=== PATIENT | female | born 1960 | race Caucasian/White ===

== ENCOUNTER 2016-05-17 22:49 | Emergency (ER) | payer MEDICAID ==
--- NOTE | 2016-05-17 22:54 | ED Physician Documentation ---
PD HPI CHEST PAIN - Stated complaint Stated Complaint: CP - History obtained from History obtained from: Patient - History of Present Illness Timing - onset: How many days ago (2 days ago, then resolved until 4 PM this afternoon and became worse and pleuritic at 8PM; significant spontaneous improvement en route to ED) Timing - details: Gradual onset, Intermittant, Waxing and waning Pain level now: 5 Quality: Pain Location: Left chest Radiation: Other (does not radiate) Improved by: Nothing Worsened by: Inspiration Associated symptoms: No: Shortness of air, Diaphoresis, Nausea, Vomiting Similar symptoms before: Has not had sx before Recently seen: Not recently seen Review of Systems Constitutional: denies: Fever Cardiac: reports: Chest pain / pressure. 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 - Present Medications Home Medications: Ambulatory Orders Medication Instructions Recorded Confirmed traZODone [Desyrel] 50 mg ORAL QPM 08/25/13 08/25/13 - Allergies Allergies/Adverse Reactions: Allergies Allergy/AdvReac Type Severity Reaction Status Date / Time No Known Drug Allergies Allergy Verified 08/24/13 14:40 PD ED PE NORMAL - Vitals Vital signs reviewed: Yes - General General: Alert and oriented X 3, No acute distress, Well developed/nourished - HEENT HEENT: Moist mucous membranes - Neck Neck: Supple, no meningeal sign - Cardiac Cardiac: RRR, No murmur, No gallop, No rub - Respiratory Respiratory: No respiratory distress, Clear bilaterally - Abdomen Abdomen: Soft, Non tender - Back Back: No CVA TTP - Derm Derm: Normal color, Warm and dry - Extremities Extremities: No edema Results - Vitals Vitals: Vital Signs - 24 hr 05/17/16 05/17/16 05/17/16 22:54 23:17 23:25 Temperature 36.7 C Heart Rate 78 70 Respiratory 20 18 Rate Blood Pressure 141/92 H 132/80 H O2 Saturation 98 98 05/17/16 05/18/16 05/18/16 23:37 01:00 01:58 Temperature 36.6 C Heart Rate 66 65 62 Respiratory 16 14 22 Rate Blood Pressure 128/61 126/81 H 97/42 L O2 Saturation 98 97 97 Oxygen O2 Source Room air - EKG (time done) No standard instances Rate: Rate (enter#) (69) Rhythm: NSR [place]: Normal Intervals: Normal MI QRS: Normal Ischemia: Normal ST segments - Labs Labs: Laboratory Tests 05/17/16 05/17/16 05/17/16 23:07 23:07 23:07 WBC 13.1 H RBC 4.27 Hgb 14.0 Hct 42.4 MCV 99.3 H MCH 32.7 H MCHC 32.9 RDW 12.7 Plt Count 362 MPV 7.9 Neut # 7.6 H Lymph # 4.0 H Hawkins # 1.2 H Eos # 0.2 Baso # 0.1 Absolute Nucleated RBC 0.00 Nucleated RBCs 0.0 D-Dimer Sodium 137 Potassium 3.5 Chloride 104 Carbon Dioxide 25 Anion Gap 8.0 BUN 13 Creatinine 0.7 Estimated GFR (MDRD) 87 L Glucose 95 Calcium 9.3 Total Bilirubin 0.5 AST 27 ALT 12 Alkaline Phosphatase 42 Troponin I < 0.04 Total Protein 7.0 Albumin 4.4 Globulin 2.6 Albumin/Globulin Ratio 1.7 Lipase 38 Urine Color Urine Clarity Urine pH Ur Specific [place] Urine Protein Urine Glucose (UA) Urine Ketones Urine Occult Blood Urine Nitrite Urine Bilirubin Urine Urobilinogen Ur Leukocyte Esterase Urine RBC Urine WBC Ur Squamous Epith Cells Urine Bacteria Ur Microscopic Review Urine Culture Comments 05/17/16 05/17/16 23:07 23:10 WBC RBC Hgb Hct MCV MCH MCHC RDW Plt Count MPV Neut # Lymph # Hawkins # Eos # Baso # Absolute Nucleated RBC Nucleated RBCs D-Dimer 180.5 L Sodium Potassium Chloride Carbon Dioxide Anion Gap BUN Creatinine Estimated GFR (MDRD) Glucose Calcium Total Bilirubin AST ALT Alkaline Phosphatase Troponin I Total Protein Albumin Globulin Albumin/Globulin Ratio Lipase Urine Color YELLOW Urine Clarity CLEAR Urine pH 6.0 Ur Specific [place] <=1.005 Urine Protein NEGATIVE Urine Glucose (UA) NEGATIVE Urine Ketones NEGATIVE Urine Occult Blood TRACE-LYSE Urine Nitrite POSITIVE H Urine Bilirubin NEGATIVE Urine Urobilinogen 0.2 (NORMAL) Ur Leukocyte Esterase NEGATIVE Urine RBC 0-5 Urine WBC 0-3 Ur Squamous Epith Cells RARE Squamous Urine Bacteria Many H Ur Microscopic Review INDICATED Urine Culture Comments INDICATED - Rads (name of study) chest xray Radiology: Prelim report reviewed, See rad report PD MEDICAL DECISION MAKING - ED course Complexity details: reviewed results, re-evaluated patient, considered differential, d/w patient Departure - Departure Disposition: 01 Home, Self Care Clinical Impression: Chest pain Qualifiers: Chest pain type: unspecified Qualified Code(s): R07.9 - Chest pain, unspecified Condition: Good Instructions: ED Chest Pain Atypical Unkn Cause Comments: Contact your primary care provider's office Thursday to arrange for next available appointment Discharge Date/Time: 05/18/16 03:04
[2016-05-17 23:16] LABS: BASOPHILS # (AUTO) 0.1 10^3/uL (0.0-0.1); BASOPHILS % (AUTO) 0.7 %; EOSINOPHILS # (AUTO) 0.2 10^3/uL (0.0-0.7); EOSINOPHILS % (AUTO) 1.7 %; HCT - HEMATOCRIT 42.4 % (37.0-47.0); LYMPHOCYTES % (AUTO) 30.4 %; MEAN CORPUSCULAR HEMOGLOBIN 32.7 pg (27.0-31.0); MEAN CORPUSCULAR HGB CONC 32.9 g/dL (32.0-36.0); MEAN CORPUSCULAR VOLUME 99.3 fL (81.0-99.0); MEAN PLATELET VOLUME 7.9 fL (7.9-10.8); MONOCYTES # (AUTO) 1.2 10^3/uL (0.0-1.0); NEUTROPHILS # (AUTO) 7.6 10^3/uL (1.5-6.6); NEUTROPHILS % (AUTO) 58.2 %; RED BLOOD COUNT 4.27 10^6/uL (4.20-5.40); RED CELL DISTRIBUTION WIDTH 12.7 % (12.0-15.0); UNCORRECTED WHITE BLOOD COUNT 13.1 x10^3/uL; WHITE BLOOD COUNT 13.1 x10^3/uL (4.8-10.8)
[2016-05-17 23:29] LABS: ALBUMIN/GLOBULIN RATIO 1.7 (1.0-2.2); BILIRUBIN,TOTAL 0.5 mg/dL (0.2-1.0); CALCIUM 9.3 mg/dL (8.5-10.3); CREATININE 0.7 mg/dL (0.4-1.0); POTASSIUM 3.5 mmol/L (3.5-5.0)
[2016-05-17 23:32] LABS: BILIRUBIN,URINE NEGATIVE (NEGATIVE)
[2016-05-17 23:34] LABS: UA w/ MICROSCOPIC CHARGE YES
[2016-05-17 23:41] LABS: UR CULTURE IF IND INDICATED; WBC,URINE 0-3 /HPF (0-5)
--- NOTE | 2016-05-17 23:57 | XRAY Preliminary Report ---
Exam: XR Chest 2 View PA/LAT IMPRESSION: Small streaky bibasilar opacities, left greater than right. These may be due to atelectas is, aspiration, and/or pneumonia. [facility] SITE ID: [id number]
--- NOTE | 2016-05-18 | XRAY Report ---
EXAM: CHEST RADIOGRAPHY EXAM DATE: 05/17/2016 11:36 PM. CLINICAL HISTORY: Sharp chest pain, shortness of breath since 4 PM. COMPARISON: None. TECHNIQUE: 2 views. FINDINGS: Lungs/Pleura: There are small streaky bibasilar opacities, left greater than right. No effusion or de finite pneumothorax. Mediastinum: Normal heart size. Other: None. IMPRESSION: Small streaky bibasilar opacities, left greater than right. These may be due to atelectas is, aspiration, and/or pneumonia. [facility] Referring Provider Line: [phone] SITE ID: [id number]
[2016-05-18 03:00] VITALS: BP 97/42
== END 2016-05-18 03:04 | disposition home or self-care (01) ==
LOC: ED 22:49
DX: R07.9 Chest pain, unspecified (principal)
CPT/HCPCS: 36415; 71020; 80053; 81001; 81003; 83690; 84484; 85025; 85379; 87077; 87086; 93005; 93010; 99284

== ENCOUNTER 2016-12-24 15:27 | Outpatient (CLI) | payer OTHER ==
--- NOTE | 2016-12-25 15:17 | Mammography Report ---
DIGITAL SCREENING MAMMOGRAM: 12/24/2016 CLINICAL INDICATION: A 56-year-old with history of bilateral reduction for screening. COMPARISON: 08/2015, 07/2014, 05/2013, 04/2012, 01/2010 TECHNIQUE: Routine CC and MLO projections were obtained of the breasts as well as bilateral laterall y exaggerated craniocaudal views. FINDINGS: Scattered fibroglandular tissue is present within the breasts. There are no dominant odin s, suspicious microcalcifications, or secondary signs of malignancy. In comparison to the previous st udies, there are no significant changes. ASSESSMENT: NO MAMMOGRAPHIC EVIDENCE OF MALIGNANCY. NO SIGNIFICANT INTERVAL CHANGES. RECOMMENDATION: Screening mammography is recommended annually. BIRADS category 1 - negative. STANDARD QUALIFYING STATEMENTS 1. This examination was reviewed with the aid of Computed-Aided Detection (CAD). 2. A negative or benign imaging report should not delay biopsy if clinically suspicious findings are present. Consider surgical consultation if warranted. More than 5% of cancers are not identified by i maging. 3. Dense breasts may obscure an underlying neoplasm. JOB #: [id number] EXT JOB #:[id number]
== END 2016-12-24 15:28 | disposition home or self-care (01) ==
LOC: DI.S 15:27
PROVIDERS: ATTEND Nurse Practitioner Family
DX: Z12.31 Encounter for screening mammogram for malignant neoplasm of breast (principal)
CPT/HCPCS: 77067

== ENCOUNTER 2018-03-05 14:20 | Outpatient (CLI) | payer OTHER ==
--- NOTE | 2018-03-08 08:32 | Mammography Report ---
Reason: SCREENING MAMMO Procedure Date: 03/05/2018 Accession Number: [id number] / [id number] Procedure: DOROTHY - Screening Mammo w/Jeet CPT Code: FULL RESULT: EXAM: Screening Mammo w/Jeet DATE: 03/05/2018 2:46 PM CLINICAL HISTORY: Screening encounter. No reported risk factors. History of breast reduction surgery in 2006. TECHNIQUE: Bilateral CC and MLO views were obtained. COMPARISON: 12/24/2016 through 05/30/2013. FINDINGS: The breasts demonstrate scattered fibroglandular densities bilaterally. Postsurgical changes are stable, typically benign. No suspicious masses, clustered microcalcifications, or regions of architectural distortion are identified. IMPRESSION: Benign findings RECOMMENDATION: Routine annual screening unless otherwise clinically indicated. BIRADS CATEGORY 2: Benign findings STANDARD QUALIFYING STATEMENTS: 1. This examination was not reviewed with the aid of Computer-Aided Detection (CAD). 2. A negative or benign imaging report should not preclude biopsy if clinically suspicious findings are present. 3. Dense breasts may obscure an underlying neoplasm. 4. This examination was reviewed with the aid of 3D breast imaging (tomosynthesis).
== END 2018-03-05 14:21 | disposition home or self-care (01) ==
LOC: DI 14:20
PROVIDERS: ATTEND Nurse Practitioner Family
DX: Z12.31 Encounter for screening mammogram for malignant neoplasm of breast (principal)
CPT/HCPCS: 77063; 77067

== ENCOUNTER 2018-03-16 09:24 | Outpatient (CLI) | payer OTHER ==
[2018-03-16 17:56] LABS: BASOPHILS % (AUTO) 0.5 %; EOSINOPHILS # (AUTO) 0.1 10^3/uL (0.0-0.7); EOSINOPHILS % (AUTO) 1.7 %; HGB - HEMOGLOBIN 14.4 g/dL (12.0-16.0); LYMPHOCYTES # (AUTO) 1.9 10^3/uL (1.5-3.5); LYMPHOCYTES % (AUTO) 28.3 %; MEAN CORPUSCULAR HEMOGLOBIN 32.7 pg (27.0-31.0); MEAN CORPUSCULAR VOLUME 99.1 fL (81.0-99.0); MEAN PLATELET VOLUME 8.2 fL (7.9-10.8); MONOCYTES # (AUTO) 0.6 10^3/uL (0.0-1.0); MONOCYTES % (AUTO) 8.3 %; NEUTROPHILS # (AUTO) 4.1 10^3/uL (1.5-6.6); NEUTROPHILS % (AUTO) 61.2 %; PLT - PLATELET COUNT 351 10^3/uL (130-450); RED BLOOD COUNT 4.42 10^6/uL (4.20-5.40); RED CELL DISTRIBUTION WIDTH 13.1 % (12.0-15.0); WHITE BLOOD COUNT 6.7 x10^3/uL (4.8-10.8)
[2018-03-16 18:15] LABS: ALBUMIN 4.3 g/dL (3.2-5.5); ALBUMIN/GLOBULIN RATIO 1.7 (1.0-2.2); ALKALINE PHOSPHATASE 40 IU/L (42-121); ALT ALANINE AMINOTRANSFERASE 14 IU/L (10-60); AST ASPARTATE AMINOTRANSFERASE 18 IU/L (10-42); BILIRUBIN,TOTAL 0.9 mg/dL (0.2-1.0); BUN - BLOOD UREA NITROGEN 11 mg/dL (6-20); CALCIUM 9.1 mg/dL (8.5-10.3); CARBON DIOXIDE - CO2 23 mmol/L (21-32); CHLORIDE 105 mmol/L (101-111); CHOL/HDL RATIO 3.6 (<4.4); CHOLESTEROL 217 mg/dL; CREATININE 0.6 mg/dL (0.4-1.0); GFR - MDRD 103 (>89); GLUCOSE 76 mg/dL (70-100); HDL CHOLESTEROL 61 mg/dL; LDL CHOLESTEROL,CALCULATED 147 mg/dL; LDL/HDL RATIO 2.4 (<4.4); SODIUM 137 mmol/L (135-145); TOTAL PROTEIN 6.9 g/dL (6.7-8.2); VLDL CHOLESTEROL 9 mg/dL
== END 2018-03-16 09:25 | disposition home or self-care (01) ==
LOC: LAB.F 09:24
PROVIDERS: ATTEND Nurse Practitioner Family
DX: Z13.228 Encounter for screening for other metabolic disorders (principal); Z13.220 Encounter for screening for lipoid disorders; Z13.0 Encounter for screening for diseases of the blood and blood-forming organs and certain disorders involving the immune mechanism
CPT/HCPCS: 36415; 80053; 80061; 83721; 84443; 85025

== ENCOUNTER 2018-09-15 08:10 | Outpatient (CLI) | payer OTHER ==
--- NOTE | 2018-09-15 11:10 | Ultrasound Report ---
Reason: POST MENOPAUSAL BLEEDING AFTER THREE MONTHS ON HOR Procedure Date: 09/15/2018 Accession Number: [id number] / [id number] Procedure: US - Pelvic w/Transvaginal CPT Code: FULL RESULT: EXAM: PELVIC ULTRASOUND EXAM DATE: 09/15/2018 09:03 AM. CLINICAL HISTORY: Postmenopausal bleeding after three months on hormone therapy. COMPARISON: None. TECHNIQUE: Realtime transabdominal pelvic scan performed to identify the uterus and adnexa and as an overview of other pelvic structures, followed by transvaginal scan to provide greater detail of the uterus and adnexa, with static image documentation. FINDINGS: Uterus: 8.6 x 4.6 x 5.2 cm, volume 108 cc. Anteverted position. Normal overall size and echotexture. Masses: Within the posterior uterine body is a 2.1 x 1.8 x 1.8 cm intramural presumed fibroid. Endometrium: 8 mm. Normal. Cervix: Nabothian cysts are noted. Right Ovary: 1.8 x 0.9 x 0.9 cm, volume 0.8 cc. Normal echotexture and blood flow. Left Ovary: 1.0 x 0.7 x 1.5 cm, volume 5 cc. Normal echotexture and blood flow. Free Fluid: None. Other: None. IMPRESSION: Endometrial thickness is greater than expected for the postmenopausal state. Intramural fibroid. [facility]
== END 2018-09-15 08:11 | disposition home or self-care (01) ==
LOC: DI 08:10
PROVIDERS: ATTEND Nurse Practitioner Family
DX: N95.0 Postmenopausal bleeding (principal); D25.1 Intramural leiomyoma of uterus; R93.89 Abnormal findings on diagnostic imaging of other specified body structures
CPT/HCPCS: 76830; 76856

== ENCOUNTER 2020-04-03 14:59 | Outpatient (CLI) | payer OTHER ==
--- NOTE | 2020-04-04 16:47 | Ultrasound Report ---
PROCEDURE: Pelvic w/Transvaginal INDICATIONS: HX OF POSTMENOPAUSAL BLEEDING, FIBROID TECHNIQUE: Real-time scanning was performed of the pelvic organs, with image documentation. Additional endovagi nal scanning was necessary due to incomplete visualization of the adnexal and endometrial structures by transabdominal scanning. COMPARISON: Pelvic ultrasound 09/15/2018 FINDINGS: No pathologic free abdominal or pelvic fluid. Uterus: Uterus is normal in size at 8.6 x 4.5 x 4.7 cm. The endometrium measures 7.1 mm in combined thickness. Mild increased vascularity is noted within the endometrium. There is a left posterior int ramural/submucosal focus of heterogeneous echogenicity measuring 14 x 12 x 17 mm compared to 21 x 18 x 18 mm. Ovaries: Right ovary measures 1.4 x 0.4 cm. Left ovary is not visualized. IMPRESSION: 1. Mildly prominent and increased vascularity endometrium for postmenopausal patient with bleeding. 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 2. Mildly decreased size of previously identified uterine fibroid. Reviewed by: Jinny Parks MD on 04/04/2020 4:46 PM PST Approved by: Jinny Parks MD on 04/04/2020 4:46 PM PST Station ID: [id number]
== END 2020-04-03 15:00 | disposition home or self-care (01) ==
LOC: DI 14:59
PROVIDERS: ATTEND Nurse Practitioner Family
DX: N95.0 Postmenopausal bleeding (principal); D25.9 Leiomyoma of uterus, unspecified; Z79.890 Hormone replacement therapy; Z84.89 Family history of other specified conditions

== ENCOUNTER 2020-10-12 09:22 | Outpatient (CLI) | payer OTHER ==
--- NOTE | 2020-10-12 10:06 | XRAY Report ---
PROCEDURE: Knee 3 View RT INDICATIONS: RIGHT KNEE TECHNIQUE: 3 views of the right knee(s) were acquired. COMPARISON: None. FINDINGS: Bones: No fractures or dislocations. No suspicious bony lesions. Minimal medial joint space narrowi ng. Soft tissues: No joint effusion. No suspicious soft tissue calcifications. IMPRESSION: Minimal degenerative changes. If the patient's pain or other symptoms persist, consider further evaluation with MRI. Reviewed by: Robbin Espinoza MD on 10/12/2020 10:05 AM PDT Approved by: Robbin Espinoza MD on 10/12/2020 10:05 AM PDT Station ID: [id number]
== END 2020-10-12 09:23 | disposition home or self-care (01) ==
LOC: DI.S 09:22
PROVIDERS: ATTEND Nurse Practitioner Family
DX: M17.11 Unilateral primary osteoarthritis, right knee (principal)

== ENCOUNTER 2020-11-29 12:43 | Outpatient (CLI) | payer OTHER ==
--- NOTE | 2020-11-30 08:42 | Mammography Report ---
BILATERAL DIGITAL SCREENING MAMMOGRAM 3D/2D: 11/29/2020 CLINICAL: Routine screening. Comparison is made to exams dated: 03/05/2018 mammogram, 12/24/2016 mammogram, 08/08/2015 mammogram, a nd 07/26/2014 mammogram - [facility]. There are scattered fibroglandular elements i n both breasts. No significant masses, calcifications, or other findings are seen in either breast. There has been no significant interval change. IMPRESSION: NEGATIVE There is no mammographic evidence of malignancy. A 1 year screening mammogram is recommended. This exam was interpreted at Station ID: [id number]. NOTE: For mammograms, a report in lay terms will be sent to the patient. Approximately 15% of breast malignancies will not be visualized mammographically. In the management of a palpable breast mass, a negative mammogram must not discourage biopsy of a clinically suspicious lesion. Electronically Signed By: Teddy Menjivar M.D. slc/penrad:11/29/2020 13:53:59 ACR BI-RADS Category 1: Negative 3341F PARENCHYMAL PATTERN: (A) - The breast(s) demonstrate(s) scattered fibroglandular densities. BI-RADS CATEGORY: (1) - 1 RECOMMENDATION: (ANNUAL) - Recommend routine annual screening mammography. [id number] 1 year screening LATERALITY: (B)
== END 2020-11-29 12:44 | disposition home or self-care (01) ==
LOC: DI 12:43
DX: Z12.31 Encounter for screening mammogram for malignant neoplasm of breast (principal)

== ENCOUNTER 2020-11-29 12:44 | Outpatient (CLI) | payer OTHER ==
--- NOTE | 2020-11-29 15:11 | Ultrasound Report ---
PROCEDURE: Pelvic w/Transvaginal INDICATIONS: POSTMENOPAUSAL BLEEDING TECHNIQUE: Real-time scanning was performed of the pelvic organs, with image documentation. Additional endovagi nal scanning was necessary due to incomplete visualization of the adnexal and endometrial structures by transabdominal scanning. COMPARISON: Pelvic ultrasound 04/03/2020. FINDINGS: No pathologic free abdominal or pelvic fluid. Uterus: Uterus is normal in size at 8.0 x 4.1 x 4.5 cm. The endometrium measures 4 mm in combined t hickness. A mildly hyperechoic posterior intramural fibroid is seen measuring 1.7 x 1.6 x 1.5 cm. Ovaries: The ovaries are not visualized. No suspicious adnexal mass is seen. IMPRESSION: 1. Endometrial thickness is within normal limits, decreased in thickness when compared to the prior ultrasound from 04/03/2020. 2. Stable small uterine fibroid. Reviewed by: Preet Ornelas MD on 11/29/2020 3:10 PM PDT Approved by: Preet Ornleas MD on 11/29/2020 3:10 PM PDT Station ID: [id number]
== END 2020-11-29 12:45 | disposition home or self-care (01) ==
LOC: DI 12:44
PROVIDERS: ATTEND Obstetrics & Gynecology
DX: D25.1 Intramural leiomyoma of uterus (principal); N95.0 Postmenopausal bleeding

== ENCOUNTER 2021-01-16 13:31 | Outpatient (CLI) | payer OTHER ==
[2021-01-18 09:22] LABS: ESTRADIOL <15 pg/mL; PROGESTERONE <0.5 ng/mL
== END 2021-01-16 13:32 | disposition home or self-care (01) ==
LOC: LAB.S 13:31
PROVIDERS: ATTEND Obstetrics & Gynecology
DX: Z78.0 Asymptomatic menopausal state (principal)
CPT/HCPCS: 36415; 81599; 82670; 82671; 82672; 84144

== ENCOUNTER 2021-04-10 10:43 | Outpatient (CLI) | payer OTHER ==
--- NOTE | 2021-04-10 16:34 | DEXA Report ---
PROCEDURE: Dexa Spine and/or Hip INDICATIONS: MENOPAUSE, OSTEOPENIA TECHNIQUE: Dual energy x-ray absorptiometry (DXA) was performed on a [employer] System. Regions measur ed are the AP Spine, femoral neck, and if needed forearm. COMPARISON: None. FINDINGS: Lumbar Spine: Bone Mineral Density 1.215 g/cm/cm,T score 0.3. Left Hip: Bone Mineral Density 1.103 g/cm/cm,T score 0.8. Left Femoral Neck: Bone Mineral Density 0.972 g/cm/cm, T score -0.5. (T score greater or equal to -1.0: NORMAL) (T score from -1.1 to -2.4: OSTEOPENIA) (T score less than or equal to -2.5 to: OSTEOPOROSIS) Impression: Normal bone mineral density. Patients with diagnosis of osteoporosis or osteopenia should have regular bone mineral density assess ment. For those eligible for Medicare, routine testing is allowed once every 2 years. Testing frequ ency can be increased for patients who have rapidly progressing disease or for those who are receivin g medical therapy to restore bone mass. Reviewed by: Ken Hull MD on 04/10/2021 4:33 PM PST Approved by: Ken Hull MD on 04/10/2021 4:33 PM PST Station ID: [id number]
== END 2021-04-10 10:44 | disposition home or self-care (01) ==
LOC: DI 10:43
PROVIDERS: ATTEND Obstetrics & Gynecology
DX: Z78.0 Asymptomatic menopausal state (principal); M85.80 Other specified disorders of bone density and structure, unspecified site

== ENCOUNTER 2022-10-03 08:44 | Day surgery (SDC) | payer OTHER ==
[2022-10-03] MEDS ORDERED: LACTATED RINGERS 1,000 ML IV ONE ×2 (08:50→10:46)
--- NOTE | 2022-10-03 09:37 | ANESTHESIA ---
Pre-Anesthesia VS, & Labs - Diagnosis screening - Procedure colonoscopy Vital Signs: Temp Pulse Resp BP Pulse Ox O2 Flow Rate 36.3 C L 57 L 16 120/74 98 10/03/22 08:50 10/03/22 08:50 10/03/22 08:50 10/03/22 08:50 10/03/22 08:50 Height: 4 ft 4 in Weight (kg): 65.7 kg Body Mass Index: 37.6 BMI Classification: Obese - NPO >8 hours - Is Patient ?: No - Lab Results Lab results reviewed: Yes Home Medications and Allergies Allergies/Adverse Reactions: Allergies Allergy/AdvReac Type Severity Reaction Status Date / Time No Known Drug Allergies Allergy Verified 08/24/13 14:40 Anes History & Medical History - Anesthetic History Anesthesia Complications: reports: No previous complications Family history of Anesthesia Complications: Denies Family history of Malignant Hyperthermia: Denies - Medical History Cardiovascular: reports: None Pulmonary: reports: None Gastrointestinal: reports: None Urinary: reports: None Neuro: reports: None Musculoskeletal: reports: None Endocrine/Autoimmune: reports: None Blood Disorders: reports: None Skin: reports: None Smoking Status: Never smoker Psychosocial: reports: No issues indicated - Surgical History Gynecologic: reports: Breast reduction Exam General: Alert, Oriented x3, Cooperative Dental: WNL Mouth Openin Fingerbreadth Neck Mobility: Normal Mallampati classification: I Thyromental Distance: 4-6 cm Respiratory: Lungs clear Cardiovascular: Regular rate Plan Anesthesia Type: General, MAC Consent for Procedure(s) Verified and Reviewed: Yes Code Status: Attempt Resuscitation ASA classification: 1-Healthy patient Is this case an emergency?: No
[2022-10-03] MEDS ORDERED: PROPOFOL 500 MG/50 ML 500 MG/50 ML VIAL ONE (10:01)
--- NOTE | 2022-10-03 10:11 | HISTORY & PHYSICAL EXAMINATION ---
Chief Complaint - Chief Complaint Chief Complaint: here for colonoscopy History of Present Illness - History Obtained From Records Reviewed: yes History obtained from: pt Exam Limitations: none - History of Present Illness HPI Comment/Other: normal colonoscopy about 10 years ago. her for screening. 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 Meds/Allgy - Allergies Allergies/Adverse Reactions: Allergies Allergy/AdvReac Type Severity Reaction Status Date / Time No Known Drug Allergies Allergy Verified 08/24/13 14:40 Review of Systems - Other Findings Other Findings: 10 pt ros as above otherwise unremarkable Exam - Vital Signs Vital Signs: Vital Signs x48h Temp Pulse Resp BP Pulse Ox 10/03/22 08:50 36.3 C L 57 L 16 120/74 98 - Physical Exam General Appearance: positive: No acute distress, Alert Eyes Bilateral: positive: PERRL, EOMI ENT: positive: No signs of dehydration Neck: positive: No JVD, Trachea midline Respiratory: positive: No respiratory distress Cardiovascular: positive: Regular rate & rhythm Abdomen: positive: No distention Neurologic/Psychiatric: positive: Oriented x3 Conclusion/Plan - Problem List (1) Colon cancer screening Conclusion/Plan: plan colonoscopy. parq held and consent obtained - Lab Results Lab results reviewed: Yes
[2022-10-03] MEDS ORDERED: PROPOFOL 200 MG/20 ML VIAL IVP ONE (10:41)
[2022-10-03 11:23] VITALS: BP 109/54
--- NOTE | 2022-10-03 12:36 | ANESTHESIA POST OP EVALUATION ---
Anesthesia Post Eval - Post Anesthesia Eval Vitals: Last Vital Signs Temp 36.0 C L 10/03/22 10:46 Pulse 55 L 10/03/22 11:19 Resp 14 10/03/22 11:19 BP 109/54 L 10/03/22 11:19 Pulse Ox 100 10/03/22 11:19 O2 Flow Rate CV Function Including HR & BP: Stable Pain Control: Satisfactory Nausea & Vomiting: Negative Mental Status: Baseline Respiratory Status: Airway Patent Hydration Status: Satisfactory Anesthesia Complications: None
== END 2022-10-03 08:45 | disposition home or self-care (01) ==
LOC: SDS 08:44
PROVIDERS: ATTEND Surgery
DX: Z12.11 Encounter for screening for malignant neoplasm of colon (principal); D12.0 Benign neoplasm of cecum; K57.30 Diverticulosis of large intestine without perforation or abscess without bleeding; E66.9 Obesity, unspecified; Z68.37 Body mass index [BMI] 37.0-37.9, adult
CPT/HCPCS: 45380; J7120

== ENCOUNTER 2023-04-15 14:10 | Outpatient (CLI) | payer BC ==
--- NOTE | 2023-04-16 09:27 | Mammography Report ---
BILATERAL DIGITAL SCREENING MAMMOGRAM 3D/2D: 04/15/2023 CLINICAL: Routine screening. Comparison is made to exams dated: 11/29/2020 mammogram and 03/05/2018 mammogram - [facility]. There are scattered areas of fibroglandular density in both breasts (category b / 25%-50% glandular t issue). No significant masses, calcifications, or other findings are seen in either breast. There has been no significant interval change. IMPRESSION: NEGATIVE There is no mammographic evidence of malignancy. A 1 year screening mammogram is recommended. Based on the Tyrer Cuzick model (a risk assessment model) the patient's lifetime risk is 5.2% and her 10 year risk is 2.2%. According to the ACR, ACS, and NCCN guidelines, an annual breast MRI exam deven g with mammogram is recommended if the patient's lifetime risk is 20% or greater. This exam was interpreted at Station ID: [id number]. NOTE: For mammograms, a report in lay terms will be sent to the patient. Approximately 15% of breast malignancies will not be visualized mammographically. In the management of a palpable breast mass, a negative mammogram must not discourage biopsy of a clinically suspicious lesion. Electronically Signed By: Louisa cortes/dave:04/15/2023 16:53:44 letter sent: No_Letter ACR BI-RADS Category 1: Negative 3341F PARENCHYMAL PATTERN: (A) - The breast(s) demonstrate(s) scattered fibroglandular densities. BI-RADS CATEGORY: (1) - 1 Mammogram [id number] 1 year screening LATERALITY: (B)
== END 2023-04-15 14:11 | disposition home or self-care (01) ==
LOC: DI.S 14:10
PROVIDERS: ATTEND Nurse Practitioner Family
DX: Z12.31 Encounter for screening mammogram for malignant neoplasm of breast (principal); R92.323 Mammographic fibroglandular density, bilateral breasts